=== PATIENT | female | born 1995 | race Caucasian/White ===

== ENCOUNTER 2023-11-17 22:36 | Emergency (ER) | payer MEDICAID ==
[~2023-11-17] VITALS: Ht 162.6 cm; Wt 59.0 kg
[2023-11-17 23:00] VITALS: BP_SYST 134; PULSE 97; RESP 18; TEMP 97.8; O2SAT 98
[2023-11-18 00:13] LABS: BILIRUBIN,URINE NEGATIVE (NEGATIVE); BLOOD, URINE NEGATIVE (NEGATIVE); COLOR,URINE YELLOW (YELLOW); GLUCOSE,URINE NEGATIVE (NEGATIVE); KETONES,URINE NEGATIVE (NEGATIVE); NITRITE, URINE POSITIVE (NEGATIVE); PROTEIN URINE NEGATIVE (NEGATIVE)
[2023-11-18 00:25] LABS: CLARITY/URINE CLOUDY (CLEAR)
[2023-11-18 00:26] LABS: LEUKOCYTE ESTERASE ,URINE TRACE (NEGATIVE)
[2023-11-18 00:32] LABS: BACTERIA,URINE MANY /HPF (None Seen); RBC,URINE 0-3 /HPF (0-3)
[2023-11-18 00:45] LABS: BARBITURATE, URINE NEGATIVE (NEG <=200); METHAMPHETAMINES SCREEN,URINE POSITIVE (NEG <=500); URINE AMPHETAMINE POSITIVE (NEG <=500)
[2023-11-18 00:46] LABS: BENZODIAZEPINE, URINE NEGATIVE (NEG <=150); CANNABINOID, URINE NEGATIVE (NEG <=50); COCAINE, URINE NEGATIVE (NEG <=150); OPIATE, URINE NEGATIVE (NEG <=100); PHENCYCLIDINE SCREEN,URINE NEGATIVE (NEG <=25); UR TRICYCLIC ANTIDEPRESSANTS NEGATIVE (NEG <=300); URINE METHADONE NEGATIVE (NEG <=200); URINE OXYCODONE SCREEN NEGATIVE (NEG <=100)
[2023-11-18] MEDS ORDERED: cefTRIAXone 1 GM in LIDOCAINE 1%, 20 ML MDV 2.1 ML IM ONE (01:30)
[2023-11-18] MEDS ORDERED: DOXY100T2 PO (01:50)
[2023-11-18 01:53] VITALS: BP_SYST 134; PULSE 97; RESP 18; TEMP 97.8; O2SAT 98
== END 2023-11-18 01:53 | disposition home or self-care (01) ==
LOC: SED 22:36
DX: N76.0 Acute vaginitis (principal); Z88.2 Allergy status to sulfonamides; F12.90 Cannabis use, unspecified, uncomplicated; Z79.899 Other long term (current) drug therapy
CPT/HCPCS: 99284; 80307; 81000; 81001; 87086; 87210; 74018; 96372; 81015; J0696; J2001